=== PATIENT | female | born 1965 | race Caucasian/White ===

== ENCOUNTER 2020-10-21 10:03 | Outpatient (REF) | payer OTHER, SELFPAY ==
--- NOTE | 2020-10-21 10:09 | MM_ITS ---
EXAMINATION: MM SCREENING DIGITAL BREAST TOMOSYNTHESIS, BILATERAL CLINICAL INFORMATION: Screening. Asymptomatic. The lifetime risk of breast cancer based on the Tyrer-Cuzick Model is 9%. COMPARISON: Mammography: 06/30/2019, 05/29/2018, 03/26/2017 TECHNIQUE: Digital breast tomosynthesis is performed in both the craniocaudal and mediolateral oblique views along with computer-aided detection (CAD). Synthesized 2D images are generated from the tomosynthesis. FINDINGS: There are scattered areas of fibroglandular density (ACR BI-RADS breast composition Category b). Breast tissue composition borders on predominantly fatty. There are no significant masses, abnormal calcifications, or other abnormalities. No significant changes from prior exams. MM/MM tomosynthesis screening BI IMPRESSION: No mammographic evidence of malignancy. ASSESSMENT: BI-RADS 1: Negative RECOMMENDATION: Routine annual mammography screening. This patient's information was entered into a reminder system with a target due date for their next mammogram.
== END 2020-10-21 10:04 | disposition home or self-care (01) ==
LOC: HO.MAMMO 10:03
PROVIDERS: PCP Internal Medicine; Visit Provider Internal Medicine
DX: Z12.31 Encounter for screening mammogram for malignant neoplasm of breast (principal)
CPT/HCPCS: 77063; 77067

== ENCOUNTER 2021-03-27 06:52 | Outpatient (REF) | payer OTHER, SELFPAY ==
[2021-03-27 07:47] LABS: Alanine Aminotransferase 43 U/L (0-31); Albumin Level 4.1 g/dL (3.5-5.0); Alkaline Phosphatase 94 U/L (39-117); Anion Gap 12 (12-20); Aspartate Amino Transferase 27 U/L (5-31); Bilirubin Total 0.9 mg/dL (0.0-1.0); Blood Urea Nitrogen 7 mg/dL (9-16); Calcium 9.3 mg/dL (8.4-10.2); Carbon Dioxide 27 mmol/L (22-29); Chloride 107 mmol/L (96-108); Estimated Glomerular Filt Rate > 60; Glucose Random 93 mg/dL (60-115); Potassium 4.2 mmol/L (3.3-5.1); Sodium 142 mmol/L (135-145); Total Protein 7.2 g/dL (6.5-8.0)
[2021-03-27 08:00] LABS: Thyroid Stimulating Hormone 5.04 uIU/mL (0.32-4.0)
== END 2021-03-27 06:53 | disposition home or self-care (01) ==
LOC: HO.LAB 06:52
PROVIDERS: PCP Internal Medicine; Visit Provider Internal Medicine
DX: Z00.00 Encounter for general adult medical examination without abnormal findings (principal); E03.8 Other specified hypothyroidism; I10 Essential (primary) hypertension
CPT/HCPCS: 36415; 80053; 84443

== ENCOUNTER 2022-04-03 08:40 | Outpatient (REF) | payer OTHER, SELFPAY ==
--- NOTE | ~2022-04-03 | MM_ITS ---
EXAMINATION: MM SCREENING DIGITAL BREAST TOMOSYNTHESIS, BILATERAL CLINICAL INFORMATION: Screening. Asymptomatic. The lifetime risk of breast cancer based on the Tyrer-Cuzick Model is 7%. COMPARISON: Mammography: 10/21/2020, 06/30/2019, 05/29/2018 TECHNIQUE: Digital breast tomosynthesis is performed in both the craniocaudal and mediolateral oblique views along with computer-aided detection (CAD). Synthesized 2D images are generated from the tomosynthesis. FINDINGS: There are scattered areas of fibroglandular density (ACR BI-RADS breast composition Category b). There are no significant masses, abnormal calcifications, or other abnormalities. Parenchymal pattern is similar to prior studies. There is no developing density or architectural abnormality. The axilla and skin contours are unremarkable. No significant changes. MM/MM tomosynthesis screening BI IMPRESSION: No mammographic evidence of malignancy. ASSESSMENT: BI-RADS 1: Negative RECOMMENDATION: Routine annual mammography screening. This patient's information was entered into a reminder system with a target due date for their next mammogram.
== END 2022-04-03 08:41 | disposition home or self-care (01) ==
LOC: HO.MAMMO 08:40
PROVIDERS: Visit Provider Family Medicine
DX: Z12.31 Encounter for screening mammogram for malignant neoplasm of breast (principal)
CPT/HCPCS: 77063; 77067

== ENCOUNTER 2022-06-04 11:54 | Outpatient (REF) | payer OTHER, SELFPAY ==
--- NOTE | ~2022-06-04 | US_ITS ---
EXAMINATION: US ABDOMEN COMPLETE CLINICAL INFORMATION: Elevated LFTs. COMPARISON: None. TECHNIQUE: Real-time imaging of the abdominal viscera. FINDINGS: PANCREAS: The pancreas is homogeneous in echotexture. No focal lesion seen. ABDOMINAL AORTA: The proximal, mid, and distal segments are normal in caliber. INFERIOR VENA CAVA: Visualized portions are normal. LIVER: The liver is normal in size. The liver contour is normal. There is increased liver echogenicity. No focal hepatic lesion. There is no intrahepatic biliary duct dilatation seen. GALLBLADDER: Normal. The gallbladder is physiologically distended without evidence of stones, sludge, polyps, wall thickening or pericholecystic fluid. COMMON BILE DUCT: Normal in caliber measuring 0.5 cm in diameter. RIGHT KIDNEY: Normal. No hydronephrosis. No renal calculi or focal parenchymal lesions. The kidney measures 10.2 cm in maximum dimension. LEFT KIDNEY: Normal. No hydronephrosis. No renal calculi or focal parenchymal lesions. The kidney measures 9.4 cm in maximum dimension. SPLEEN: Normal. The spleen measures 8.9 cm in maximum dimension. FREE FLUID: None. US/US abdomen complete IMPRESSION: Mild hepatic steatosis without focal lesion. The rest of the abdominal ultrasound is unremarkable.
== END 2022-06-04 11:55 | disposition home or self-care (01) ==
LOC: HO.US 11:54
PROVIDERS: Visit Provider Family Medicine
DX: R79.89 Other specified abnormal findings of blood chemistry (principal)
CPT/HCPCS: 76700

== ENCOUNTER 2023-07-13 13:48 | Outpatient (AMB) | payer OTHER, SELFPAY ==
--- NOTE | 2023-07-13 13:49 | MHC.OFFVIS ---
Intake Vital Signs 07/13/23 13:55 Height 5 ft 8 in Weight 230 lb BMI 35.0 BP 131/64 Blood Pressure Location Lt brachial Position Sitting Pulse 72 Intake Visit Reasons: Recall colonoscopy Intake Note: This patient presents for an assessment for a recall colonoscopy screening. Patient c/o; reports last colonoscopy 5 years ago, denies rectal bleeding, pain or pressure. Project Engineering Director Required: No Accompanied by: Self / Same As Patient Allergies Pt states no food/medication a Allergy (Unknown, Uncoded 07/13/23 13:58) none seasonal allergies Allergy (Unknown, Uncoded 07/13/23 13:58) Nasal congestion Medication List - Last Reviewed 07/13/23 by TAYA Lagos amlodipine 5 mg PO DAILY brimonidine 0.2% drps ophthalmic (eye) dorzolamide 2% drps ophthalmic (eye) levothyroxine 25 mcg PO DAILY losartan-hydrochlorothiazide 100-25 mg 1 tab PO DAILY timolol maleate 0.5% drps ophthalmic (eye) HPI Recall colonoscopy HPI Details 58-year-old female referred for a recall colonoscopy. She had undergone colonoscopy for screening in 2017. At that time there was a 1 cm polyp that was removed in the right colon that was a for adenoma. I had recommended a follow-up colonoscopy in 5 years because of the size of this adenoma She otherwise denies any significant complaints. She denies any family history of colon cancer. [facility] Medical History (Updated 07/13/23 @ 14:06 by Drew Lora MD) Hypertension Thyroid disease Morbid obesity History of adenomatous polyp of colon Review of Systems Const Denies chills and Denies fever(s) Card Denies chest pain, Denies dyspnea and Denies dyspnea on exertion Resp Denies cough, Denies dyspnea and Denies dyspnea on exertion GI Denies hematochezia and Denies change in bowel habits Denies hematuria Musc Denies back pain and Denies limited range of motion Neuro Denies focal weakness and Denies convulsions Psych Denies depression and Denies mood swings Physical Exam Vital Signs: Last Vital Signs Pulse 72 07/13/23 13:55 BP 131/64 07/13/23 13:55 BMI result Body Mass Index 35.0 Const General: comfortable and no acute distress Orientation/consciousness: patient oriented x3 Neck Neck: Yes no lymphadenopathy Resp Auscultation: clear to auscultation bilaterally Cardio Rhythm: regular rhythm GI Palpation (GI): Soft to palpation, nontender and no guarding Neuro General: patient oriented x3 Assessment & Plan Assessment & Plan (1) History of adenomatous polyp of colon: Code(s): Z86.010 - Personal history of colonic polyps Plan: She had a 1 cm colon adenoma removed from the right colon in 2017. I recommended a 5 year follow-up colonoscopy. I reviewed with her the technique of this procedure. I explained the risks including but not limited to bleeding, infections, perforation, as well as the benefits and alternatives. She has given consent. Medications: New sodium,potassium,mag sulfates 17.5-3.13-1.6 gram (Suprep Bowel Prep Kit) DILUTE; drink full amount early evening before AND next morning at least 2 hr before procedure; follow w 960 mL water PO 354 mL 0RF Coding Level of Care Code New Pt Level 3 (93867) Diagnoses History of adenomatous polyp of colon Z86.010
[2023-07-13 13:55] VITALS: BP 131/64; PULSE 72; BMI 35.0
== END 2023-07-13 14:12 | disposition home or self-care (01) ==
PROVIDERS: PCP Family Medicine; Visit Provider Surgery
DX: Z86.010 Personal history of colon polyps (principal)
CPT/HCPCS: 99203

== ENCOUNTER → 2023-07-13 13:48 | Outpatient (BNVA) | payer OTHER, SELFPAY | PROVIDERS: PCP Family Medicine; Visit Provider Surgery ==

== ENCOUNTER 2023-07-18 08:55 | Outpatient (REF) | payer OTHER, SELFPAY ==
[2023-07-18 11:49] LABS: MANUAL DIFF FLAG NO
[2023-07-18 12:15] LABS: Basophils Percent Auto 0.5 % (0-2); Eosinophils Absolute Auto 0.2 X10*3/uL (0.0-0.4); Eosinophils Percent Auto 3.9 % (0-4); Hematocrit 43.6 % (37.0-47.0); Hemoglobin 14.6 g/dl (12.0-16.0); Imm Gran Abs Auto 0.02 X10*3/uL (0.00-0.03); Imm Gran Pct Auto 0.3 % (0.0-0.4); Lymphocytes Percent Auto 31.5 % (20-40); Mean Corpuscular HGB Conc 33.5 g/dl (31.0-35.0); Mean Corpuscular Hemoglobin 29.3 pg (27.0-33.0); Mean Corpuscular Volume 87.6 fL (80.0-98.0); Mean Platelet Volume 9.8 fL (9.4-12.3); Monocytes Absolute Auto 0.4 X10*3/uL (0.1-1.2); Monocytes Percent Auto 7.1 % (2-11); Neutrophils Absolute Auto 3.5 x10*3/uL (2.0-8.3); Neutrophils Percent Auto 56.7 % (45-73); Platelet Count 364 X10*3/uL (160-400); Red Blood Count 4.98 X10*6/uL (4.20-5.50); Red Cell Distribution Width 12.8 % (11.0-16.0); White Blood Count 6.2 X10*3/uL (4.8-10.8)
[2023-07-18 12:21] LABS: Estimated Average Glucose 105 mg/dL; Hemoglobin A1c % 5.3 % (<6.0)
[2023-07-18 13:05] LABS: Alanine Aminotransferase 29 U/L (0-31); Albumin Level 4.2 g/dL (3.5-5.0); Alkaline Phosphatase 86 U/L (39-117); Anion Gap 13 (12-20); Aspartate Amino Transferase 24 U/L (5-31); Bilirubin Direct 0.3 mg/dL (0.0-0.5); Bilirubin Total 0.6 mg/dL (0.0-1.0); Blood Urea Nitrogen 11 mg/dL (9-16); Calcium 9.7 mg/dL (8.4-10.2); Carbon Dioxide 24 mmol/L (22-29); Chloride 107 mmol/L (96-108); Cholesterol 209 mg/dL (<200); Estimated Glomerular Filt Rate > 60; Free T4 (Free Thyroxine) 0.94 ng/dL (0.71-1.85); Glucose Random 83 mg/dL (60-115); HDL Cholesterol 64 mg/dL (>40); LDL Cholesterol Calculated 127 mg/dL (<100); Potassium 3.4 mmol/L (3.3-5.1); Sodium 141 mmol/L (135-145); Thyroid Stimulating Hormone 5.55 uIU/mL (0.32-4.0); Triglycerides 92 mg/dL (<150); Vitamin D 25-OH Total 35.9 ng/mL (>30)
[2023-07-18 13:16] LABS: Creatinine Urine 179.76 mg/dL
[2023-07-18 15:12] LABS: CT PCR NOT DETECTED (Not Detect.); NG PCR NOT DETECTED (Not Detect.)
[2023-07-19 03:42] LABS: Syphilis Screen Nonreactive (Nonreactive)
[2023-07-19 05:28] LABS: HBsAGNum1 0.36 S/CO (0.00-0.99); HIV AB/AG Nonreactive (Nonreactive); HIV Num 1 0.06 S/CO (0.00-0.99); Hepatitis B Surface Antigen Negative (Negative); ~HepC Num1 0.13 S/CO (0.00-0.79); ~Hepatitis B Surface Antibody NONREACTIVE (Nonreactive); ~Hepatitis C Antibody Nonreactive (Nonreactive)
[2023-07-20 12:53] LABS: Alpha Fetoprotein 4.5 ng/mL
== END 2023-07-18 08:56 | disposition home or self-care (01) ==
LOC: HO.HHCL 08:55
PROVIDERS: Visit Provider Family Medicine
DX: Z00.00 Encounter for general adult medical examination without abnormal findings (principal); I10 Essential (primary) hypertension; K76.0 Fatty (change of) liver, not elsewhere classified; R53.83 Other fatigue; Z72.89 Other problems related to lifestyle; Z11.59 Encounter for screening for other viral diseases; E03.9 Hypothyroidism, unspecified; E66.9 Obesity, unspecified
CPT/HCPCS: 0353U; 80048; 80061; 80076; 82043; 82105; 82306; 82570; 83036; 84439; 84443; 85025; 86706; 86780; 86803; 87340; 87389

== ENCOUNTER 2023-08-09 06:06 | Day surgery (SDC) | payer OTHER, SELFPAY ==
[2023-08-05 08:01] VITALS: BMI 35.0
[2023-08-09 06:35] VITALS: BP 119/72; PULSE 73; RESP 20; TEMP 36.3; O2SAT 99
[2023-08-09] MEDS: Lactated Ringers 1,000 ML 100 ML IVCONT (06:57)
--- NOTE | 2023-08-09 07:15 | HO.ANESPROP2 ---
Documented by User: Gaby Varma NP 08/08/23 09:35 HPI - Anesthesia Eval Consult details Narrative: 58yo F for Colonoscopy with Poss Polypectomy PMFSH Active Problems Active Problems: All Active Problems (Updated 07/13/23 @ 14:06 by Drew Lora MD) Hypertension (Acute) Thyroid disease (Acute) Morbid obesity (Acute) History of adenomatous polyp of colon (Acute) Past Medical History Medical History Hypertension Thyroid disease Morbid obesity History of adenomatous polyp of colon Surgical History Surgical History Hx of hand surgery Hx of tubal ligation Hx of appendectomy Hx of colonoscopy Social History Social History Patient Tobacco Use Status: Never used Tobacco Are you DNR?: No Advance Directives: No Advance Directives Information Provided: Yes Meds Allergies Allergy/AdvReac Type Severity Reaction Status Date / Time Pt states no food/medication Allergy Unknown none Uncoded 07/13/23 13:58 a seasonal allergies Allergy Unknown Nasal Uncoded 07/13/23 13:58 congestion Home Medications Medication Instructions Recorded Confirmed Last Taken Type amlodipine 5 mg tablet 5 mg PO DAILY 07/13/23 08/08/23 History brimonidine 0.2 % eye drops drp ophthalmic (eye) 07/13/23 08/09/23 History dorzolamide 2 % eye drops drp ophthalmic (eye) 07/13/23 08/09/23 History levothyroxine 25 mcg tablet 25 mcg PO DAILY 07/13/23 08/08/23 History losartan 100 1 tab PO DAILY 07/13/23 08/08/23 History mg-hydrochlorothiazide 25 mg tablet timolol maleate 0.5 % eye drops drp ophthalmic (eye) 07/13/23 08/09/23 History Exam Exam Date and Time: August 08, 2023 0934 Height,Weight and Vital Signs: Height 5 ft 8 in Weight 104.326 kg Pertinent Lab Results Pertinent Lab Results: Laboratory Tests 07/18/23 09:06 WBC 6.2 Hgb 14.6 Hct 43.6 Plt Count 364 Sodium 141 Potassium 3.4 Chloride 107 Carbon Dioxide 24 BUN 11 Creatinine 0.78 Assessment and Plan Assessment Anesthesia Assessment: Chart Reviewed Documented by User: Susan Cooney DO 08/09/23 07:18 PMF Past Medical History Medical History Hypertension Thyroid disease Morbid obesity History of adenomatous polyp of colon Family History Family history of problems with anesthesia: No Surgical History Surgical History Hx of hand surgery Hx of tubal ligation Hx of appendectomy Hx of colonoscopy History of Problems with Anesthesia: No Social History Social History Patient Tobacco Use Status: Never used Tobacco Are you DNR?: No Advance Directives: No Advance Directives Information Provided: Yes Meds Allergies Allergy/AdvReac Type Severity Reaction Status Date / Time Pt states no food/medication Allergy Unknown none Uncoded 07/13/23 13:58 a seasonal allergies Allergy Unknown Nasal Uncoded 07/13/23 13:58 congestion Home Medications Medication Instructions Recorded Confirmed Last Taken Type amlodipine 5 mg tablet 5 mg PO DAILY 07/13/23 08/08/23 History brimonidine 0.2 % eye drops drp ophthalmic (eye) 07/13/23 08/09/23 History dorzolamide 2 % eye drops drp ophthalmic (eye) 07/13/23 08/09/23 History levothyroxine 25 mcg tablet 25 mcg PO DAILY 07/13/23 08/08/23 History losartan 100 1 tab PO DAILY 07/13/23 08/08/23 History mg-hydrochlorothiazide 25 mg tablet timolol maleate 0.5 % eye drops drp ophthalmic (eye) 07/13/23 08/09/23 History Exam Exam Date and Time: August 09, [id number] Height,Weight and Vital Signs: Height 5 ft 8 in Weight 104.326 kg Vital Signs Temperature 97.4 F 08/09/23 06:35 Pulse Rate 73 08/09/23 06:35 Respiratory Rate 20 08/09/23 06:35 Blood Pressure 119/72 08/09/23 06:35 Pulse Oximetry 99 08/09/23 06:35 Oxygen Delivery Method Room Air 08/09/23 06:35 Temperature 97.4 F 08/09/23 06:35 Pulse Rate 73 08/09/23 06:35 Respiratory Rate 20 08/09/23 06:35 Blood Pressure 119/72 08/09/23 06:35 Pulse Oximetry 99 08/09/23 06:35 Oxygen Delivery Method Room Air 08/09/23 06:35 Airway Mallampati Class: III TM Dist: >3cm Neck ROM: Full Loose/Missing/Broken Teeth: No (patient denies) Heart: S1S2 Lungs: CTAB Assessment and Plan Assessment Anesthesia Assessment: Anesthesia Plan Discussed and Chart Reviewed Final Anesthetic Review Family History of Problems with Anesthesia: No History of Problems with Anesthesia: No NPO: Yes ASA Class: II Final Preanesthetic Review: No Changes in Pt Med Stat, Meds/Allgs Chart Reviewed, Consent Obtained/Reviewed and Anes Risks/Benef Reviewed Patient Risk: Low Procedure Risk: Low Anesthetic Plan Anesthetic Plan: MAC: and Agree w/ Assess. and Plan Disposition: Standard PACU
--- NOTE | 2023-08-09 07:22 | MHC.SHP ---
Pre-Procedural Eval Section A Date of Service: 08/09/23 The patient is an INPATIENT: No Changes since office visit: No Cold of Flu in the past 2 weeks, No New Medical Problems, No Changes in Medication and No Patient answered all questions The History & Physical has been completed within 30 days and I have reviewed it.: Yes Section B Chief Complaint: Personal history of colonic polyps Allergies: Allergies Allergy/AdvReac Type Severity Reaction Status Date / Time Pt states no food/medication Allergy Unknown none Uncoded 07/13/23 13:58 a seasonal allergies Allergy Unknown Nasal Uncoded 07/13/23 13:58 congestion Plan I have reviewed the history and physical and performed a pertinent physical examination on my patient. No changes have occurred unless specified. Time Spent With Patient Time: Total time managing care of this patient today ____ minutes.
--- NOTE | 2023-08-09 08:04 | P.OP_ITS ---
Operative Note Operative Note Date of Service: 08/09/23
--- NOTE | 2023-08-09 08:06 | P.OP_ITS ---
Operative Note Operative Note Date of Service: 08/09/23 Narrative: Preop diagnosis: History of adenomatous polyp of the colon Postop diagnosis:: 1. colon polyp about 8mm size at level 29 cm Procedure: Colonoscopy with polypectomy using hot snare x1 Surgeon: Drew Lora MD The patient is a 58-year-old female who had a 1 cm adenomatous polyp removed in 2017. She is here for follow-up colonoscopy. She understood the technique of the planned procedure as well as the risks, benefits, and alternatives The patient was brought to the operating room and placed in left lateral decubitus position under monitored anesthesia care. A surgical time-out was done. A full digital rectal exam was done and this did not reveal any significant anal lesions. The tip of the Olympus colonoscope was gently introduced through the anal orifice advanced with insufflation all the way to th e cecum. The cecum was intubated. The cecum was identified by visualization of the ileocecal valve as well as the appendiceal orifice. The cecal mucosa was unremarkable. The scope was gradually withdrawn with careful examination of the entire colonic mucosa being done with scope withdrawal. The patient had adequate bowel prep so it was unlikely that any lesion may have been missed. At level 29 cm, there was note of a polyp, about mm in size. This was removed using hot snare. The rectum was reached and there were no lesions seen. The anal canal was unremarkable. The scope was then withdrawn completely with desufflation The patient tolerated procedure well. There were no immediate complications. Depending on the path report, I may recommend another colonoscopy in 5 years.
[2023-08-09 08:08] VITALS: BP 93/61; PULSE 71; RESP 20; TEMP 36.4; O2SAT 96
[2023-08-09 08:23] VITALS: BP 109/71; PULSE 70; RESP 20; O2SAT 99
== END 2023-08-09 09:06 | disposition home or self-care (01) ==
PROVIDERS: PCP Family Medicine; Visit Provider Surgery
PROC: 0DBE8ZZ Excision of Large Intestine, Via Natural or Artificial Opening Endoscopic (ICD-10-PCS; CPT 45385; principal; 2023-08-09 07:30)
DX: Z12.11 Encounter for screening for malignant neoplasm of colon (principal); Z86.010 Personal history of colon polyps; D12.5 Benign neoplasm of sigmoid colon; I10 Essential (primary) hypertension; E07.9 Disorder of thyroid, unspecified; E66.01 Morbid (severe) obesity due to excess calories; Z68.35 Body mass index [BMI] 35.0-35.9, adult; Z79.899 Other long term (current) drug therapy
CPT/HCPCS: 45385; 88305

== ENCOUNTER → 2023-08-09 06:06 | Outpatient (BNV) | payer OTHER, SELFPAY | PROVIDERS: PCP Family Medicine; Visit Provider Surgery | DX: D12.6 Benign neoplasm of colon, unspecified (principal); Z86.010 Personal history of colon polyps | CPT/HCPCS: 45385 ==

== ENCOUNTER 2023-08-15 11:23 | Outpatient (REF) | payer OTHER, SELFPAY ==
--- NOTE | ~2023-08-15 | XR_ITS ---
EXAMINATION: XR KNEE, RIGHT CLINICAL INFORMATION: Pain and swelling. COMPARISON: None available. TECHNIQUE: AP, lateral, tunnel, and sunrise views of the right knee. FINDINGS: Bony alignment and mineralization are normal. There is mild asymmetric narrowing medial joint, with peripheral osteophyte formation. There is mild narrowing of the patellofemoral compartment. There is a small osteophyte arising from the upper pole of the patella. No fracture, dislocation is seen in the joint effusion is seen. No foreign body is noted. XR/XR knee RT 3V IMPRESSION: 1. There is no fracture, dislocation or significant joint effusion. 2. There is mild osteoarthritic change of the medial and patellofemoral joint space compartments of the right knee.
== END 2023-08-15 11:24 | disposition home or self-care (01) ==
LOC: HO.HHCX 11:23
PROVIDERS: Visit Provider Family Medicine
DX: M25.561 Pain in right knee (principal)
CPT/HCPCS: 73562

== ENCOUNTER 2023-08-20 09:04 | Outpatient (REF) | payer OTHER, SELFPAY | END 2023-08-20 09:05 | disposition home or self-care (01) | LOC: HO.MAMMO 09:04 | PROVIDERS: Visit Provider Family Medicine | DX: Z12.31 Encounter for screening mammogram for malignant neoplasm of breast (principal) | CPT/HCPCS: 77063; 77067 ==

== ENCOUNTER → 2023-08-20 09:15 | Outpatient (BNV) | payer OTHER, SELFPAY | PROVIDERS: Visit Provider Radiology Diagnostic Radiology | DX: Z12.31 Encounter for screening mammogram for malignant neoplasm of breast (principal) | CPT/HCPCS: 77063; 77067 ==

== ENCOUNTER 2023-09-20 08:34 | Outpatient (REF) | payer OTHER, SELFPAY ==
[2023-09-20 11:55] LABS: Free T4 (Free Thyroxine) 1.02 ng/dL (0.71-1.85); Thyroid Stimulating Hormone 2.95 uIU/mL (0.32-4.0)
== END 2023-09-20 08:35 | disposition home or self-care (01) ==
LOC: HO.HHCL 08:34
PROVIDERS: Visit Provider Family Medicine
DX: E03.9 Hypothyroidism, unspecified (principal)
CPT/HCPCS: 36415; 84439; 84443

== ENCOUNTER 2024-03-22 09:07 | Outpatient (REF) | payer OTHER, SELFPAY ==
[2024-03-22 11:26] LABS: MANUAL DIFF FLAG NO
[2024-03-22 11:35] LABS: Basophils Percent Auto 0.6 % (0-2); Eosinophils Absolute Auto 0.2 X10*3/uL (0.0-0.4); Eosinophils Percent Auto 3.4 % (0-4); Hematocrit 41.7 % (37.0-47.0); Hemoglobin 14.4 g/dl (12.0-16.0); Imm Gran Abs Auto 0.02 X10*3/uL (0.00-0.03); Imm Gran Pct Auto 0.4 % (0.0-0.4); Lymphocytes Absolute Auto 1.6 X10*3/uL (1.2-4.9); Lymphocytes Percent Auto 34.5 % (20-40); Mean Corpuscular HGB Conc 34.5 g/dl (31.0-35.0); Mean Corpuscular Hemoglobin 29.8 pg (27.0-33.0); Mean Corpuscular Volume 86.3 fL (80.0-98.0); Mean Platelet Volume 10.2 fL (9.4-12.3); Monocytes Absolute Auto 0.4 X10*3/uL (0.1-1.2); Monocytes Percent Auto 8.3 % (2-11); Neutrophils Absolute Auto 2.5 x10*3/uL (2.0-8.3); Neutrophils Percent Auto 52.8 % (45-73); Platelet Count 334 X10*3/uL (160-400); Red Blood Count 4.83 X10*6/uL (4.20-5.50); Red Cell Distribution Width 12.8 % (11.0-16.0); White Blood Count 4.7 X10*3/uL (4.8-10.8)
[2024-03-22 11:39] LABS: Estimated Average Glucose 108 mg/dL; Hemoglobin A1c % 5.4 % (<6.0)
[2024-03-22 12:11] LABS: Alanine Aminotransferase 58 U/L (0-31); Albumin Level 4.1 g/dL (3.5-5.0); Alkaline Phosphatase 85 U/L (39-117); Anion Gap 12 (12-20); Aspartate Amino Transferase 43 U/L (5-31); Bilirubin Direct 0.2 mg/dL (0.0-0.5); Bilirubin Total 0.5 mg/dL (0.0-1.0); Blood Urea Nitrogen 11 mg/dL (9-16); Calcium 9.6 mg/dL (8.4-10.2); Carbon Dioxide 27 mmol/L (22-29); Chloride 108 mmol/L (96-108); Cholesterol 217 mg/dL (<200); Estimated Glomerular Filt Rate > 60; Free T4 (Free Thyroxine) 0.99 ng/dL (0.71-1.85); Glucose Random 100 mg/dL (60-115); HDL Cholesterol 63 mg/dL (>40); LDL Cholesterol Calculated 135 mg/dL (<100); Potassium 3.8 mmol/L (3.3-5.1); Sodium 143 mmol/L (135-145); Thyroid Stimulating Hormone 2.53 uIU/mL (0.32-4.0); Total Protein 7.6 g/dL (6.5-8.0); Triglycerides 99 mg/dL (<150)
[2024-03-22 12:32] LABS: HBsAGNum1 0.32 S/CO (0.00-0.99); HIV AB/AG Nonreactive (Nonreactive); HIV Num 1 0.05 S/CO (0.00-0.99); Hepatitis B Surface Antigen Negative (Negative)
[2024-03-26 16:08] LABS: VITAMIN D (1,25 OH) D3 56 pg/mL; Vit D (1,25-Dihydroxy) Total 56 pg/mL (18-72); Vitamin D (1,25 OH) D2 <8 pg/mL
== END 2024-03-22 09:08 | disposition home or self-care (01) ==
LOC: HO.HHCL 09:07
PROVIDERS: Visit Provider Family Medicine
DX: Z00.00 Encounter for general adult medical examination without abnormal findings (principal); K76.0 Fatty (change of) liver, not elsewhere classified; I10 Essential (primary) hypertension
CPT/HCPCS: 36415; 80048; 80061; 80076; 82652; 83036; 84439; 84443; 85025; 87340; 87389

== ENCOUNTER → 2024-03-26 14:19 | Outpatient (REF) | payer OTHER, SELFPAY ==
--- NOTE | 2024-03-26 14:24 | ECG_ITS ---
Test Reason : HTN Blood Pressure : / mmHG Vent. Rate : 077 BPM Atrial Rate : 077 BPM P-R Int : 180 ms QRS Dur : 076 ms QT Int : 400 ms P-R-T Axes : 054 000 052 degrees QTc Int : 452 ms Normal sinus rhythm Nonspecific T wave abnormality Abnormal ECG No previous ECGs available Referred By: Rosario Allison Electronically Signed By:ASHLEY MAZA MD
== END ==
LOC: HO.CARD 14:19
PROVIDERS: PCP Family Medicine; Visit Provider Family Medicine
DX: I10 Essential (primary) hypertension (principal)
CPT/HCPCS: 93005

== ENCOUNTER → 2024-03-26 14:24 | Outpatient (BNV) | payer OTHER, SELFPAY | PROVIDERS: PCP Family Medicine; Visit Provider Internal Medicine Cardiovascular Disease | DX: R94.31 Abnormal electrocardiogram [ECG] [EKG] (principal) | CPT/HCPCS: 93010 ==

== ENCOUNTER 2025-08-03 07:25 | Outpatient (REF) | payer OTHER, SELFPAY ==
--- OUTSIDE RECORDS SUMMARY | 2025-08-03 07:29 | XMS_ITS | Clinical Summary ---
Author Organization [facility] Address [address] [place] [phone] Phone Care Team Providers Care Chief Cruiser Name Role Phone Yue Dumont MD Primary Care Provider Allergies No known active allergies Medications LORATADINE ORAL Take by mouth. Active levothyroxine sodium (LEVOTHYROXINE ORAL) Take by mouth. Active amlodipine besylate (AMLODIPINE ORAL) Take by mouth. Active losartan potassium (LOSARTAN ORAL) Take by mouth. Active Social History Tobacco Use Types Packs/Day Years Used Date Smoking Tobacco: Never Smokeless Tobacco: Never Alcohol Use Standard Drinks/Week Comments Not Currently 0 (1 standard drink = 0.6 oz pur e alcohol) Education Answer Date Recorded Are you interested in more education? Not on ny e 02/19/2023 Are you concerned about learning? Not on file 02/19/2023 No 02/19/2023 No 02/19/2023 Digital Access Answer Date Recorded No 03/22/2023 No 03/22/2023 Reliable internet access at home? Not on file 03/22/2023 Device with a working camera? Not on file Comments Unknown Sex and Gender Information Value Date Recorded Sex Assigned at Not on file Legal Sex Female 5:19 PM EDT Gender Identity Not on file Sexual Orientation Not on file Last Filed Vital Signs Vital Sign Reading Time Taken Comments Blood Pressure 140/93 05/21/2021 6:22 PM EDT Pulse 81 05/21/2021 6:22 PM EDT Temperature 36.4 C (97.5 F) 05/21/2021 6:22 PM EDT Respiratory Rate 20 05/21/2021 6:22 PM EDT Oxygen Saturation 98% 05/21/2021 6:22 PM EDT Inhaled Oxygen Concentration - - Weight 106.1 kg (234 lb) 05/21/2021 6:22 PM EDT Height 172.7 cm (5' 8 ) 05/21/2021 6:22 PM EDT Body Mass Index 35.58 05/21/2021 6:22 PM EDT Plan of Treatment Not on file Medical Devices Not on file Insurance [facility] Care Teams Chief Cruiser Relationship Specialty Start Date End Date Yue Dumont MD [address] [place] [address] [place] [id number] PCP - General Internal Medicine 05/21/21 Additional Source Comments The information contained in this document represents components of the legal health record. It is not the complete legal health record.[facility]
--- OUTSIDE RECORDS SUMMARY | 2025-08-03 07:29 | XMS_ITS | Encounter Summary ---
Author Organization [employer] Address [address] [place] [address] [address] [place] [address] Care Team Providers Care Sales And Marketing Coordinator Name Role Phone Rosario Allison DO Primary Care Provider + [phone] Encounter Details Date Type Department Care Team ([facility] st Contact Info) Description 01/05/2023 Orders Only [facility] MED & PEDS [address] [place], [place] [phone] Rosario Parker LPN Social History Tobacco Use Types Packs/Day Years Used Date Smoking Tobacco: Never Assessed Comments Unknown Sex and Gender Information Value Date Recorded Sex Assigned at Female 08/23/2022 10:14 AM EDT Legal Sex Female 10:14 AM EDT Gender Identity Female 08/23/2022 10:14 AM EDT Sexual Orientation Straight 08/08/2023 10 :30 AM EDT documented as of this encounter Plan of Treatment Not on file documented as of this encounter Visit Diagnoses Not on filedocumented in this encounter Care Teams Sales And Marketing Coordinator Relationship Specialty Start Date End Date Rosario Allison DO [address] [place] [id number] PCP - General Family Medicine 04/09/22 documented as of this encounter
--- OUTSIDE RECORDS SUMMARY | 2025-08-03 07:29 | XMS_ITS | Encounter Summary ---
Author Organization [employer] Address [address] [place] [address] [address] [place] [address] Care Team Providers Care Automobile Mechanic Radiator Name Role Phone Rosario Allison DO Primary Care Provider + [phone] Encounter Details Date Type Department Care Team ([facility] st Contact Info) Description 11/29/2022 Orders Only [facility] & PEDS [address] [place], [place] [phone] Rosario Parker LPN Social History Tobacco Use Types Packs/Day Years Used Date Smoking Tobacco: Never Assessed Comments Unknown Sex and Gender Information Value Date Recorded Sex Assigned at Female 08/23/2022 10:14 AM EDT Legal Sex Female 10:14 AM EDT Gender Identity Female 08/23/2022 10:14 AM EDT Sexual Orientation Straight 08/08/2023 10 :30 AM EDT COVID-19 Exposure Response Date Recorded In the last 10 days, have yo u been in contact with someone who was confirmed or suspected to have Coronavirus/COVID-19? Yes 11/09/2022 3:01 PM EST documented as of this encounter Plan of Treatment Not on file documented as of this encounter Visit Diagnoses Not on filedocumented in this encounter Care Teams Automobile Mechanic Radiator Relationship Specialty Start Date End Date Rosario Allison DO [address] [place] [id number] PCP - General Family Medicine 04/09/22 documented as of this encounter
--- OUTSIDE RECORDS SUMMARY | 2025-08-03 07:29 | XMS_ITS | Encounter Summary ---
Author Organization [employer] Address [address] [place] [address] [place] [address] Care Team Providers Care Planisher Name Role Phone Rosario Allison DO Primary Care Provider + [phone] Reason for Visit * Reason Onset Date Comments Med Refill 02/12/2024 Encounter Details Date Type Department Care Team ([facility] st Contact Info) Description 02/12/2024 Refill [facility] MED[facility] [address] [place] [address] Rosario Allison DO [address] [place] [address] Social History Tobacco Use Types Packs/Day Years Used Date Smoking Tobacco: Never Smokeless Tobacco: Never Alcohol Use Standard Drinks/Week Comments Never 0 (1 standard drink = 0.6 oz pur e alcohol) Housing Stability Answer Date Recorded What is your housing situation today? I have [place] 08/08/[address] you li ve. Do you have problems with any of the following? None of the above 08/08/2023 Food Insecurity Answer Date Recorded Within the past 12 months, y ou worried that your food would run out before you got money to buy more: Never True 08/08/2023 Within the past 12 months,th e food you bought just didn't last and you didn't have enough money to get more: Never True Transportation Answer Date Recorded In the past 12 months, has l ack of transportation kept you from medical appts, meetings, work or from getting things needed for daily living? No 08/08/2023 Utilities Answer Date Recorded In the past 12 months, has t he electric, gas, oil or water company threatened to shut off services in your home? No 08/08/2023 Depression Answer Date Recorded Patient Health Questionnaire-2 Score 0 02/16/2023 Comments Unknown Sex and Gender Information Value [...] on filedocumented in this encounter Care Teams Planisher Relationship Specialty Start Date End Date Rosario Allison DO [address] [place] [address] PCP - General Family Medicine 04/09/22 documented as of this encounter
--- OUTSIDE RECORDS SUMMARY | 2025-08-03 07:29 | XMS_ITS | Clinical Summary ---
Author Organization [employer] Address [address] [place] [phone] Care Team Providers Care Pheresis Specialist Name Role Phone KeeganRosario Primary Care Provider + [phone] Allergies No known active allergies Medications zoster vaccine-recombi nant adjuvanted (Shingrix) 50 MCG/0.5ML vaccine inject 0.5 milliliter by intramuscular route once Active timolol (Timoptic) 0.5 % ophthalmic solution INSTILL 1 DROP IN EACH EYE TWICE DAILY Active omega-3 1000 MG capsule capsule take 1 Tablet by Oral route 2 times every day Active dorzolamide (Trusopt) 2 % ophthalmic solution PLACE 1 DROP IN EACH EYE TWICE DAILY Active cholecalciferol (Vitamin D-3) 50 MCG (2000 UT) capsule take 1 Tablet by Oral route every day Active brimonidine-ramiro olol (Combigan) 0.2-0.5 % ophthalmic solution instill 1 drop by ophthalmic route every 12 hours into affected eye(s) Active brimonidine (AlphaGAN P) 0.2 % ophthalmic solution INSTILL 1 DROP IN EACH EYE TWICE DAILY Active Diclofenac Sodium 1 % gel Apply 2 g topically if needed in the morning, at noon, in the evening, and at bedtime (pain). 150 g 3 023 Active losartan-hydroC HLOROthiazide (Hyzaar) 100-25 MG tabletIndicatio ns:Hypertension , unspecified type TAKE 1 TABLET BY MOUTH EVERY DAY 90 tablet 3 025 Active amLODIPine (Norvasc) 5 MG tabletIndicatio ns:Essential hypertension TAKE 1 TABLET BY MOUTH EVERY DAY 30 tablet 5 025 Active levothyroxine (Synthroid, Levoxyl) 50 MCG tablet TAKE 1 TABLET BY MOUTH EVERY DAY BEFORE BREAKFAST 30 tablet 11 025 Active levothyroxine (Synthroid, Levoxyl) 50 MCG tablet TAKE 1 TABLET BY MOUTH EVERY DAY BEFORE BREAKFAST 30 tablet 11 024 2024 Discontinued Active Problems Problem Noted Date Diagnosed Date Fatty liver 03/26/2024 Prediabetes 03/26/2024 Healthcare maintenance 03/26/2024 Chronic pain of both knees 03/26/2024 Glaucoma 02/15/2023 Essential hypertension 02/15/2023 Hypothyroidism 02/15/2023 Obesity (BMI 30-39.9) 02/15/2023 Vitamin D deficiency 02/15/2023 Encounters Date Type Department Care Team Description 07/22/2025 Refill [facility] [address] [place] [address] Rosario Allison DO 07/08/2025 Telephone [facility] [address] [place] [address] Rosario Allison DO Referral 05/03/2025 Refill [facility] [address] [place], [place] [phone] Rosario Allison DO Essential hypertension from Last 3 Months Immunizations Immunization Administration Dates Next Due Hep B, adult 07/31/2024 Moderna Covid-19 Vaccine 12+ 05/12/2021 TD (adult), 2 Lf tetanus tox oid, preservative free, adsorbed 08/10/2021 Tdap 02/09/2011 Social History Tobacco Use Types Packs/Day Years Used Date Smoking Tobacco: Never Smokeless Tobacco: Never Tobacco Cessation:Counseling Given: Not Answered Alcohol Use Standard Drinks/Week Comments Never 0 (1 standard drink = 0.6 oz pur e alcohol) Depression Answer Date Recorded Patient Health Questionnaire-9 Score 1 03/26/2024 Patient Health Questionnaire-9 Score 1 03/26/2024 Last PHQ-9: Questionnaire Data Not on file 0 03/26/2024 Housing Stability Answer Date Recorded What is your housing situation today? I have mariposa sing 03/20/[address] you li ve. Do you have problems with any of the following? None of the above 03/20/2024 Food Insecurity Answer Date Recorded Within the past 12 months, y ou worried that your food would run out before you got money to buy more: Never True 03/20/2024 Within the past 12 months,th e food you bought just didn't last and you didn't have enough money to get more: Never True Transportation Answer Date Recorded In the past 12 months, has l ack of transportation kept you from medical appts, meetings, work or from getting things needed for daily living? No 03/20/2024 Utilities Answer Date Recorded In the past 12 months, has t he electric, gas, oil or water company threatened to shut off services in your home? No 03/20/2024 Depression Answer Date Recorded Patient Health Questionnaire-2 Score 0 03/26/2024 Comments Unknown Sex and Gender Information Value Date Recorded Sex Assigned at Female 08/23/2022 10:14 AM EDT Legal Sex Female 10:14 AM EDT Gender Identity Female 08/23/2022 10:14 AM EDT Sexual Orientation Straight 08/08/2023 10 :30 AM EDT Last Filed Vital Signs Vital Sign Reading Time Taken Comments Blood Pressure 121/75 07/31/2024 10:46 AM EDT Pulse 62 07/31/2024 10:46 AM EDT Temperature 36.1 C (97 F) 07/31/2024 10:46 AM EDT Respiratory Rate 17 07/31/2024 10:46 AM EDT Oxygen Saturation 97% 08/15/2023 10:05 AM EDT Inhaled Oxygen Concentration - - Weight 108 kg (238 lb) 07/31/2024 10:46 AM EDT Height 172.7 cm (5' 8 ) 07/31/2024 10:46 AM EDT Body Mass Index 36.19 07/31/2024 10:46 AM EDT Plan of Treatment Health Maintenance Due Date Last Done Comments CT Colonography 1966 Colonoscopy 1966 Colorectal Cancer Screening 1966 FIT DNA/Cologuard 1966 FIT 1966 FOBT 1966 Sigmoidoscopy 1966 Disability Screening 1966 Alcohol/Substance Use Screening 1978 Hepatitis A Vaccines (1 of 2 - Risk 2-dose series) 1985 Pneumococcal Vaccine: 50+ Years (1 of 1 - PCV) 2016 Zoster Vaccines (1 of 2) 2016 Hepatitis B Vaccines (2 of 3 - 19+ 3-dose series) 08/28/2024 07/31/2024 SDOH Screening 03/20/2025 03/20/2024 Diabetes: Hemoglobin A1C 03/22/2025 024, 07/18/2023, 04/09/2022, Additional history exists Depression Screening 03/26/2025 03/26/2024, 03/26/20 COVID-19 Vaccine ( season) 2025 11/07/2021, 05/12/2021, 04/16/2021, Additional history exists Influenza Vaccine (#1) 2025 Tobacco Screening 07/31/2025 07/31/2024 Mammogram 08/20/2025 08/20/2023, 04/03/2022 Cervical Cancer Screening 04/09/2027 HPV/Cotest 04/09/2027 04/09/2022 Pap Smear 04/09/2027 04/09/2022 Lipid Panel 03/22/2029 03/22/2024, 06/25, 04/09/2022, Additional history exists DTaP/Tdap/Td Vaccines (3 - Td or Tdap) 08/10/2031 08/10/2021, 02/09/2011 RSV Patients and Patients Aged 60 years or older (1 - 1-dose 75+ series) 2041 Hepatitis C Screening Completed 07/18/2023, 022 HIV Screening Completed 03/22/2024, 06/25, 04/09/2022 HIB Vaccines Aged Out No longer eligi ble based on patient's age to complete this topic HPV Vaccines Aged Out No longer eligi ble based on patient's age to complete this topic IPV Vaccines Aged Out No longer eligi ble based on patient's age to complete this topic Meningococcal B Vaccine Aged Out No l onger eligible based on patient's age to complete this topic Meningococcal Vaccine Aged Out No jhoana oscar eligible based on patient's age to complete this topic RSV under 20 months Aged Out No longe r eligible based on patient's age to complete this topic Rotavirus Vaccines Aged Out No longer eligible based on patient's age to complete this topic Procedures Procedure Name Priority Date/Time Associated Diagnosis Comments HIV 1/2 ANTIGEN/ANTIBODY, FOURTH GENERATION W/RFL Routine 03/22/2024 9:13 AM EDT HEMOGLOBIN A1C Routine 03/22/2024 9:13 AM EDT LIPID PANEL, STANDARD Routine 03/22/2024 9:13 AM EDT BI MAMMOGRAM SCREENING TOMOSYNTHESIS BILATERAL Routine 08/20/2023 9:20 AM EDT HEPATITIS C AB W/REFL TO HCV RNA, QN, PCR Routine 07/18/2023 9:06 AM EDT HPV MRNA E6/E7 REFLEX TO HPV 16, 18/45 Routine 04/09/2022 9:14 AM EDT THINPREP IMAGING SYSTEM PAP Routine 04/09/2022 9:14 AM EDT from Last 3 Months or Most Recently Relevant to Health Maintenance Results * HIV-1/2 Antigen and Antibodies, Fourth Generation, with Reflexes (03/22/2024 9:13 AM EDT) HIV AB/AG Nonreactive Nonreactive [facility] Comment:HIV-1 p24 Ag and/or HIV-1/HIV-2 Ab not detected.A test result that is nonreactive does not exclude thepossibility of exposure to or infection with HIV-1 and/orHIV-2. Nonreactive results in this assay for individualswith prior exposure to HIV-1 and/or HIV-2 may be due toantigen and antibody levels that are below the limit ofdetection of this assay.The [employer] HIV Ag/Ab Combo assay result andsupplemental assay results should be interpreted inconjunction with the patient's clinical presentation,history and other laboratory results. If the results areinconsistent with clinical evidence, additional testing issuggested to confirm the result. 03/22/2024 9:13 AM EDT 03/22/2024 11:24 AM EDT Rosario Stanleyarlindaniel LAB BLOOD ORDERABLES Final R esult Performing Organization Address [facility] Co de Phone Number [facility] [address] [place] [phone] * Hemoglobin A1c (03/22/2024 9:13 AM EDT) Hemoglobin A1c 5.4 <6.0 % [facility] Comment:Hemoglobin A1C Refer ence Range Adults: 4.8 - 6.0 % Non diabetic: < 6.0 % Goal: < 7.0 %Additional Action Suggested: > 8.0 %Note: Hemoglobin A1c results are invalid for patients with abnormal amounts of HbF. Blood transfusions may impact the HbA1c concentration in the patient sample. Estimated Average Glucose 108 mg/dL [facility] Comment:eAG = Estimated ave rage glucose which is %A1C expressed asaverage glucose, using the formula of the W3S-[id number] Glucose study (ADAG), Diabetes Care, Vol.31,#8,May. 2007 03/22/2024 9:13 AM EDT 03/22/2024 11:24 AM EDT Rosario Keegan DO LAB BLOOD ORDERABLES Final R esult Performing Organization Address [facility] Co de Phone Number [facility] [address] [place] [phone] * (ABNORMAL) Lipid Panel, Standard (03/22/2024 9:13 AM EDT) Triglycerides 99 <150 mg/dL [facility] Comment:Desirable Triglyceri de: less than 150 mg/dLBorderline High Triglyceride 150-199 mg/dLHigh Triglyceride: 200-499 mg/dLVery High Triglyceride: greater than or equal to 5OO mg/dL Cholesterol 217(H) <200 mg/dL [facility] Comment:Desirable Cholestero l: less than 200 mg/dLBorderline High Cholesterol: 200-239 mg/dLHigh Cholesterol: greater than 239 mg/dL LDL Cholesterol Calculated 135(H) <100 mg/dL [facility] Comment:Desirable LDL: less than 100 mg/dLNear Optimal/Above Optimal LDL: 110- 129 mg/dLBorderline High LDL: 130-159 mg/dLHigh LDL: 160-189 mg/dLVery High LDL: greater than or equal to 190 mg/dL HDL Cholesterol 63 >40 mg/dL [facility] Comment:Desirable HDL: great er than 40 mg/dL Note: This HDL assay may give artificially low results in patients with liver disease. 03/22/2024 9:13 AM EDT 03/22/2024 11:24 AM EDT Rosario Allison DO LAB BLOOD ORDERABLES Final R esult [facility] [address] [place] [address] [phone] * BI Mammogram Screening Tomosynthesis Bilateral (08/20/2023 9:20 AM EDT) Anatomical Region Laterality Modality Breast Bilateral Mammography 08/20/2023 9:20 AM EDT Narrative 08/22/2023 4:06 PM EDT [facility] [address] [place] [address] [place] [address] Mammography Report Signed Patient: Ivett Bruno MR#: [id number] 61 : 1965 Acct:[id number] Age/Sex: 58 / F ADM Date: 08/20/23 Loc: HO.MAMMO Attending Dr: Rosario Allison DO Ordering Physician: Rosario Allison DO Results: 1N egative Date of Service: 08/20/23 Follow Up: 1 Year From Orig inal Mammogram Procedure(s): MM tomosynthesis screening BI Accession Number(s): [id number] cc: Rosario Allison DO EXAMINATION: MM SCREENING DIGITAL BREAST TOMOSYNTHESIS, BILATERAL CLINICAL INFORMATION: Screening. Asymptomatic. COMPARISON: Mammography: This study is compared with prior exams dating back to 2018. TECHNIQUE: Digital breast tomosynthesis is performed in both the craniocaudal and mediolateral oblique views along with computer-aided detection (CAD). Synthesized 2D images are generated from the tomosynthesis. FINDINGS: The breasts are almost entirely fatty (ACR BI-RADS breast composition Category a). There are no significant masses, abnormal calcifications, or other abnormalities. MM/MM tomosynthesis screening BI IMPRESSION: No mammographic evidence of malignancy. ASSESSMENT: BI-RADS BI-RADS 1 - Negative RECOMMENDATION: Routine annual mammography screening. 1 year F/U This examination should not preclude the clinical evaluation of a suspicious palpable abnormality. This patient's information was entered into a reminder system with a target due date for their next mammogram. Dictated By: Hayley Jorge MD Signed By: <Electronically signed by Hayley Jorge MD in OV> 08/22/23 1602 DD/ 0920 TD/TT: Gambling Box Person: Procedure Note Donotuseinterpreter, Image - 08/22/2023 [facility] [address] [place], [place] [address] Mammography Report Signed Patient: Domenica Bruno#: [id number] 61 : 1965Acct:[id number] Age/Sex: 58 / FADM Date: 08/20/23 Loc: HO.MAMMO Attending Dr: Rosario Allison DO Ordering Physician: Rosario Allisonults: 1N egative Date of Service: 08/20/23Follow Up: 1 Year From Orig inal Mammogram Procedure(s): MM tomosynthesis screening BI Accession Number(s): [id number] cc: Rosario Allison DO EXAMINATION: MM SCREENING DIGITAL BREAST TOMOSYNTHESIS, BILATERAL CLINICAL INFORMATION: Screening. Asymptomatic. COMPARISON: Mammography: This study is compared with prior exams dating back to 2018. TECHNIQUE: Digital breast tomosynthesis is performed in both the craniocaudal and mediolateral oblique views along with computer-aided detection (CAD). Synthesized 2D images are generated from the tomosynthesis. FINDINGS: The breasts are almost entirely fatty (ACR BI-RADS breast composition Category a). There are no significant masses, abnormal calcifications, or other abnormalities. MM/MM tomosynthesis screening BI IMPRESSION: No mammographic evidence of malignancy. ASSESSMENT: BI-RADS BI-RADS 1 - Negative RECOMMENDATION: Routine annual mammography screening. 1 year F/U This examination should not preclude the clinical evaluation of a suspicious palpable abnormality. This patient's information was entered into a reminder system with a target due date for their next mammogram. Dictated By: Hayley Jorge MD Signed By: <Electronically signed by Hayley Jorge MD in OV> 08/22/23 1602 DD/ 0920 TD/TT: Gambling Box Person: Rosario Allison DO IMG BI PROCEDURES Final Resu lt * Hepatitis C Antibody with Reflex to HCV, RNA, Quantitative, Real-Time PCR (07/18/2023 9:06 AM EDT) Hepatitis C Antibody Nonreactive Nonreactive [facility] Comment:Antibodies to HCV no t detected; does not exclude early acuteHCV infection. 07/18/2023 9:06 AM EDT 07/18/2023 11:41 AM EDT Rosario Allison DO LAB BLOOD ORDERABLES Final R esult [facility] [address] [place] [phone] [phone] * THINPREP TIS PAP (04/09/2022 9:14 AM EDT) Clinical Information: None given [facility] COMMENT SEE COMMENT [facility] Comment: EXPLANATORY NOTE: The Pap is a screening test for cervical cancer. It is not a diagnostic test and is subject to false negative and false positive results. It is most reliable when a satisfactory sample, regularly obtained, is submitted with relevant clinical findings and history, and when the Pap result is evaluated along with historic and current clinical information. COMMENT: This Pap test has been evaluated with computer assisted technology. [facility] Immigration Manager : SEE COMMENT [facility] Comment: SXA, CT(ASCP) CT screening location: [place] [address] Interpretation/R esult: Negative for intraepithelial lesion or malignancy. [facility] LMP: NONE GIVEN [facility] Prev. BX: NONE [facility]IVEN [facility] Prev. PAP: NONE GIVEN [facility] SOURCE: None given [facility] Statement Of Adequacy: SEE COMMENT [facility] Comment: Satisfactory for evaluation. Endocervical/transformation zone component present. 04/09/2022 9:14 AM EDT Rosario Allison [facility] LAB PATHOLOGY ORDERABLES Fin al Result Performing Organization Address [facility] de Phone Number [facility] [address] * HPV mRNA E6/E7 REFLEX TO HPV 16, 18/45 (04/09/2022 9:14 AM EDT) HPV nRNA E6/E7 Not Detected Not Detected [facility] Comment: Methodology: Director Experimental Medicine-Mediated Amplification This assay detects E6/E7 viral messenger RNA (mRNA) from 14 high-risk HPV types (16,18,31,33,35,39,45,51,52,56,58,59,66,68). Cervical sources are required for HPV testing. If a vaginal source from a patient who has had a total hysterectomy with removal of cervix was submitted, please contact the testing laboratory for alternative testing options. For additional information, please refer to http://[email or web address].NiftyThrifty/faq/AZG111d9 (This link if provided for information/ educational purposes only.) 04/09/2022 9:14 AM EDT Rosario Allison [facility] LAB CYTOLOGY ORDERABLES Iris l Result Performing Organization Address [facility]/ZIP Co de Phone Number [facility] [address] from Last 3 Months or Most Recently Relevant to Health Maintenance Insurance [facility] , [address] [place] [address] Care Teams Pheresis Specialist Relationship Specialty Start Date End Date Rosario Allison DO [address] [place] [phone] PCP - General Family Medicine 04/09/22
--- OUTSIDE RECORDS SUMMARY | 2025-08-03 07:29 | XMS_ITS | Encounter Summary ---
Author Organization [facility] Address [address] [place] [address] [address] [address] Care Team Providers Care Sewer System Supervisor Name Role Phone Rosario Allison DO Primary Care Provider + [phone] Encounter Details Date Type Department Care Team ([facility] st Contact Info) Description 11/03/2022 Orders Only [facility] [address] [place], [place] [phone] Mei Zuleta LPN Social History Tobacco Use Types Packs/Day [...] on filedocumented in this encounter Care Teams Sewer System Supervisor Relationship Specialty Start Date End Date Rosario Allison DO [address] [place], [place] [phone] PCP - General Family Medicine 04/09/22 documented as of this encounter
--- OUTSIDE RECORDS SUMMARY | 2025-08-03 07:29 | XMS_ITS | Encounter Summary ---
Author Organization [employer] Address [address] [place] [address] [place] [address] Care Team Providers Care Principal Software Architect Name Role Phone Rosario Allison DO Primary Care Provider + [phone] Reason for Visit * Reason Onset Date Comments Med Refill 03/12/2024 Encounter Details Date Type Department Care Team ([facility] st Contact Info) Description 03/12/2024 Refill [facility] [address] [place] [address] Rosario Allison DO [address] [place] [address] Social History Tobacco Use Types Packs/Day Years [...] on filedocumented in this encounter Care Teams Principal Software Architect Relationship Specialty Start Date End Date Rosario Allison DO [address] [place] [address] PCP - General Family Medicine 04/09/22 documented as of this encounter
== END 2025-08-03 07:26 | disposition home or self-care (01) ==
LOC: HO.MAMMO 07:25
PROVIDERS: PCP Family Medicine; Visit Provider Family Medicine
DX: Z12.31 Encounter for screening mammogram for malignant neoplasm of breast (principal)
CPT/HCPCS: 77063; 77067

== ENCOUNTER → 2025-08-03 07:45 | Outpatient (BNV) | payer OTHER, SELFPAY | PROVIDERS: PCP Family Medicine; Visit Provider Radiology Body Imaging | DX: Z12.31 Encounter for screening mammogram for malignant neoplasm of breast (principal) | CPT/HCPCS: 77063; 77067 ==

== ENCOUNTER 2025-10-07 10:12 | Outpatient (REF) | payer OTHER, SELFPAY ==
[2025-10-07 11:20] LABS: Hematocrit 41.9 % (37.0-47.0); Hemoglobin 13.9 g/dl (12.0-16.0); Mean Corpuscular HGB Conc 33.2 g/dl (31.0-35.0); Mean Corpuscular Hemoglobin 29.3 pg (27.0-33.0); Mean Corpuscular Volume 88.2 fL (80.0-98.0); NRBC Abs Auto 0.000 X10*3/uL (0.0-0.012); NRBC Pct Auto 0.0 /100WBC (0.0-0.2); Platelet Count 343 X10*3/uL (160-400); Red Blood Count 4.75 X10*6/uL (4.20-5.50); White Blood Count 4.9 X10*3/uL (4.8-10.8)
[2025-10-07 11:54] LABS: Alanine Aminotransferase 94 U/L (0-31); Albumin Level 4.4 g/dL (3.5-5.0); Alkaline Phosphatase 88 U/L (39-117); Anion Gap 9 (12-20); Aspartate Amino Transferase 63 U/L (5-31); Blood Urea Nitrogen 12 mg/dL (9-16); Calcium 9.5 mg/dL (8.4-10.2); Carbon Dioxide 27 mmol/L (22-29); Chloride 109 mmol/L (96-108); Cholesterol 211 mg/dL (<200); Estimated Glomerular Filt Rate > 60; Free T4 (Free Thyroxine) 1.11 ng/dL (0.71-1.85); HDL Cholesterol 61 mg/dL (>40); Potassium 3.6 mmol/L (3.3-5.1); Sodium 141 mmol/L (135-145); Thyroid Stimulating Hormone 3.41 uIU/mL (0.32-4.0); Total Protein 7.7 g/dL (6.5-8.0); Triglycerides 116 mg/dL (<150)
[2025-10-07 12:51] LABS: HBS Num1 0.00 mIU/mL (0-7.99); HBsAGNum1 0.55 S/CO (0.00-0.99); HIV Num 1 0.07 S/CO (0.00-0.99); Hepatitis B Surface Antigen Negative (Negative); ~HepC Num1 0.13 S/CO (0.00-0.79); ~Hepatitis B Surface Antibody NONREACTIVE (Nonreactive); ~Hepatitis C Antibody Nonreactive (Nonreactive)
[2025-10-07 12:56] LABS: Microalbum/Creatinine Ratio Ur 5.9 ug/mg cr (<30)
[2025-10-08 14:19] LABS: CT PCR NOT DETECTED (Not Detect.); NG PCR NOT DETECTED (Not Detect.)
== END 2025-10-07 10:13 | disposition home or self-care (01) ==
LOC: HO.HHCL 10:12
PROVIDERS: PCP Family Medicine; Visit Provider Family Medicine
DX: Z00.00 Encounter for general adult medical examination without abnormal findings (principal); Z13.6 Encounter for screening for cardiovascular disorders; Z13.1 Encounter for screening for diabetes mellitus; Z13.29 Encounter for screening for other suspected endocrine disorder
CPT/HCPCS: 36415; 80048; 80061; 80076; 82043; 82105; 82306; 82570; 83036; 84439; 84443; 85027; 86481; 86592; 86706; 86803; 87340; 87389; 87491; 87591